=== PATIENT | female | born 2005 | race Caucasian/White ===

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

== ENCOUNTER 2025-04-24 08:40 | Emergency (ER) | payer BC, SELFPAY ==
--- OUTSIDE RECORDS SUMMARY | 2025-04-24 08:41 | XMS_ITS | Encounter Summary ---
Author Organization [facility] Address [address] [place] [address] Care Team Providers Care Abnormal Psychology Teacher Name Role Phone Oswaldo Contreras MD Primary Care Provider [phone] Edu Sears MD Primary Care Provider [phone] Edu Sears MD Unavailable [phone] Bee Jackson R Unavailable [phone] Bee Jackson R Unavailable [phone] Bee Jackson R Unavailable [phone] Bee Jackson R Unavailable [phone] Reason for Visit * Reason Onset Date Comments Refill Request 03/18/2018 Please call in L evothyroxine to [facility] Encounter Details Date Type Department Care Team (Late st Contact Info) Description 03/18/2018 Telephone [facility] Pediatrics - Endocrinology [facility] [place] [address] Cheyenne Ahmadi Refill Request (Please call in Levothyroxine to [facility]) Social History Tobacco Use Types Packs/Day Years Used Date Smoking Tobacco: Never Smokeless Tobacco: Never Alcohol Use Standard Drinks/Week Comments No 0 (1 standard drink = 0.6 oz pur e alcohol) Comments No Sex and Gender Information Value Date Recorded Sex Assigned at Female 07/14/2020 2:50 PM [employer] IN[employer] Legal Sex Female 5:45 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 Author Use safety retraint in car Lifestyle On track( 020 10:12 AM CDT) Lillian Lantigua RN documented as of this encounter Visit Diagnoses Not on filedocumented in this encounter Care Teams Abnormal Psychology Teacher Relationship Specialty Start Date End Date Oswaldo Contreras MD [address] [place] [address] PCP - General Pediatrics 12/15/17 12/04/21 Edu Sears MD [address] [address] PCP - General Family Medicine 12/05/21 Edu Sears MD [address] [address] PCP - Attributed-[employer] 03/05/22 Bee Jackson Care Coordination Specialist Care Management 12/01/23 01/15/24 Bee Jackson Care Coordination Specialist Care Management 02/24/24 02/24/24 Bee Jackson Care Coordination Specialist Care Management 09/15/24 09/15/24 Bee Jackson Care Coordination Specialist Care Management 12/31/24 12/31/24 documented as of this encounter
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
--- OUTSIDE RECORDS SUMMARY | 2025-04-24 08:41 | XMS_ITS | Clinical Summary ---
Author Organization [facility] Address [address] [place] [address] Care Team Providers Care Code Clerk Name Role Phone Edu Sears MD Primary Care Provider [phone] Edu Sears MD Unavailable [phone] Source Comments [facility],non-owned Affiliates and Associated Physician Practices is amultiple site organization consisting of ambulatory clinics and hospital sitesin [place], [place], [place] and [place]. This disclosure is being madepursuant to the Care Everywhere program and may not contain all information available regarding this patient. Last updated 18.[facility] Allergies Active Allergy Reactions Criticality Noted Date Comments Penicillins Rash Low 07/14/2015 Medications * Be aware that medications may not be up to date on this document. Alwaysverify current medications with the patient. Blisovi 24 Fe 1-20 MG-MCG(24) tablet Take 1 (one) tablet by mouth once daily 12/20/2022 Active Active Problems Problem Noted Date Diagnosed Date Hypothyroidism (acquired) 07/22/2015 Overview (07/14/2020): Dolores was diagnosed around 5 years of age with acquired hypothyroidism treated with low dose levothyroxine. Transferred care to [facility] due to insurance issues in July 2015. 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 (AF LURIA, FLUZONE TRIVALENT; 6MO+) (IIV3) 05/18/2007,02/20/2006 Covid Pfizer primary monoval ent 12+ yr 0.3mL Purple cap 12/12/2020,11/21/2020 DTAP, HISTORIC VACCINE 06/16/2015 DTaP VACCINE IM (6wk-6yrs) 12/13/2010,,2005,09/13,2005 HEP A PEDS 2 DOSE 05/18/2007,05/19/2006 HEP B VACCINE 2005 HEP B VACCINE, PED/ADOL 05/16/2007,02/20,2005,05/16 HIB-PRP-T 4 DOSE 09/16/2006, 6,2005,07/15 Human Papilloma Virus Nineva lent Vaccine 12/28/2015,08/18/2015,06/06/2015 Human Papilloma Virus Vaccine 12/28/2015, 016,06/16/2015 INFLUENZA VACCINE 06/16/2015, 9,05/18/2007,02/20 TONJA VACCINE QUAD LAIV4 PF NASAL 06/16/2015 MENINGOCOCAL MENINGITIS 10/03/2016 MENINGOCOCCAL ACWY MENVEO 11/14/2022,10/04/2016 MMR 12/13/2010,05/19/2006 MMR/VARICELLA 05/19/2006 PNEUMOCOCCAL PCV7 CONJ, PEDS 09/16/2006, 2005,2005,07/15 POLIO IPV 12/13/2010, 6,2005,07/15 TDAP (7yrs+) 06/16/2015 VARICELLA 12/13/2010,05/19/2006 Family History Medical History Relation Name Comments Asthma Father Diabetes - Type 2 Maternal Grandfather 30 -s-40's Hypertension Maternal Grandfather 40's Other - Cardiac Maternal Grandfather 40's Other - Shell Mold Bonder Maternal Grandmother 30's, e ndometriosis DVT - Deep Vein Thrombosis Other mat great GM Autoimmune Disease Neg Hx Eczema Neg Hx Migraine Neg Hx Seizures Neg Hx Sudd. <30 Neg Hx Relation Name Status Comments Brother 2 Alive Father Alive Maternal Grandfather Maternal Grandmother Mother Alive Other mat [facility] Other Social History Tobacco Use Types Packs/Day Years Used Date Smoking Tobacco: Never Passive Smoke Exposure: Yes Smokeless Tobacco: Never Tobacco Cessation:Counseling Given: Not Answered Alcohol Use Standard Drinks/Week Comments No 0 (1 standard drink = 0.6 oz pur e alcohol) PHQ-2 Answer Date Recorded Patient Health Questionnaire-2 Score 0 08/20/2024 Comments No Sex and Gender Information Value Date Recorded Sex Assigned at Female 07/14/2020 2:50 PM [employer] Legal Sex Female 5:45 AM G[employer] Gender Identity Female 07/14/2020 2:50 PM G[employer]ER Sexual Orientation Choose not to disclose 2020 2:50 PM [employer]ER Sexual Orientation Straight 07/14/2020 2: 50 PM G[employer]CH [employer]ER Last Filed Vital Signs Vital Sign Reading Time Taken Comments Blood Pressure 110/71 08/20/2024 9:19 AM CDT Pulse 92 08/20/2024 9:19 AM CDT Temperature 36.4 C (97.5 F) 08/20/2024 9:19 AM CDT Respiratory Rate 18 11/14/2022 8:42 AM CDT Oxygen Saturation 99% 08/20/2024 9:19 AM CDT Inhaled Oxygen Concentration - - Weight 74.9 kg (165 lb 3.2 oz) 08/20/2024 9:19 A M CDT Height 162.6 cm (5' 4) 08/20/2024 9:19 AM CDT Body Mass Index 28.36 08/20/2024 9:19 AM CDT Plan of Treatment Health Maintenance Due Date Last Done Comments HIV SCREENING 2020 CHLAMYDIA/GONORRHEA SCREENING 2021 MENINGOCOCCAL (Group B) VACCINE SHARED DECISION-MAKING (1 of 2 - Standard) 2021 HEPATITIS C SCREENING 05/11/2023 INFLUENZA VACCINE (#1) 2025 6, 06/16/2015, 04/13/2009, Additional history exists DTAP/TDAP/TD VACCINES (8 - Td or Tdap) 06/16/2025 06/16/2015, 06/16/2015, 12/13/2010, Additional history exists COVID-19 VACCINE ( season) 2026 12/12/2020, 11/21/2020 Postponed from 01/03/2025 (Patient Refused) ZOSTER VACCINE (1 of 2) 2055 HIB VACCINE Completed 09/16/2006, 11/02, 2005, Additional history exists PNEUMOCOCCAL VACCINE Completed 09/16/2006, 2005, 2005, Additional history exists HEPATITIS B VACCINE Completed 05/16/2007, 02/20/2006, 2005, Additional history exists HPV VACCINE Completed 12/28/2015, 12/04, 08/18/2015, Additional history exists MENINGOCOCCAL GROUPS A/C/Y/W VACCINE Completed 11/14/2022, 10/04/2016, 10/03/2016 DEPRESSION SCREENING Completed 08/20/2024, 06/25/2022, 12/07/2021 Goals Goal Patient Goal Type Associated Problems Recent Progress Patient-Stated? Author Use safety retraint in car Lifestyle On track( 020 10:12 AM CDT) No Lillian Geller RN Insurance [facility] Care Teams Code Clerk Relationship Specialty Start Date End Date Edu Sears MD [address] [phone] PCP - General Family Medicine 12/05/21 Edu Sears MD [address] [address] PCP - Attributed-[place] [employer] 03/05/22
[2025-04-24 08:46] VITALS: BP 112/57; PULSE 100; RESP 16; TEMP 36.2; O2SAT 101
--- NOTE | 2025-04-24 09:12 | ED_ITS ---
HPI - URI/Sore Throat General Chief Complaint: Upper Respiratory Infection Stated Complaint: Cough/Chills/Vomiting Time Seen by Provider: 04/24/25 09:12 Source: patient, RN notes reviewed and old records reviewed Mode of arrival: ambulatory Limitations: no limitations History of Present Illness HPI Narrative: 19-year-old female presents to [facility] with complaints of cough, chills, body aches, some vomiting today with symptoms starting on 4 days ago..Patient has taken Tylenol cold and flu for her symptoms Patient reports that she has not had any sore throat or any ear pain and no known fevers. Patient reports that chest hurts with cough and breathing. MD elicited complaint: cough and other (vomiting. chills, body aches) Onset (ago): day(s) (4) Pain scale (0-10): 5 Able to tolerate fluids by mouth: Yes Treatments prior to arrival: other (tylenol cough and cold) Related Data Allergies Allergy/AdvReac Type Severity Reaction Status Date / Time Penicillins Allergy Rash Verified 10/15/22 11:30 Review of Systems Review of Systems: CONSTITUTIONAL: reports malaise, no chills, sweats, or fever. EYES: Denies visual changes, redness, or discharge. ENT: Reports rhinorrhea, congestion, sinus pain,no otalgia and no sore throat. CARDIOVASCULAR: Denies chest pain, palpitations, or edema. RESPIRATORY: Reports cough.? Denies dyspnea.states chest hurts with cough and breathing GASTROINTESTINAL: Denies abdominal pain, nausea, vomiting, diarrhea SKIN: Denies rash or itching. MUSCULOSKELETAL: reports myalgia. NEUROLOGIC: Denies headache. All systems reviewed & are unremarkable except as noted in HPI and below PMFSH Past Medical History Medical History Hypothyroid Surgical History Surgical History No history of previous surgery Family History Family History Mother Family history non-contributory Social History Social History Smoking status: Never smoker Alcohol intake: never Substance use: never Living arrangements: with family Occupation/Education: student Gender identity (if verbalized by the patient): Female Comments At time of signature, agree with nursing past medical, surgical, social and family history. There is no relevant family history pertinent to the presenting complaint Exam Narrative: GENERAL: Well-appearing, well-nourished, and in no acute distress. HEAD: Normocephalic EYES: PERRLA, conjunctivae clear ENT: Nares clear, turbinates edematous and erythematous, clear discharge. Mucous membranes moist. TM pearly edwards with dull light reflex bilaterally; no tragal tenderness. Oropharynx erythematous without lesions. Tonsils red mildly enlarged and without exudate, no drooling, no hoarseness, no trismus, uvula midline.post nasal drainage noted NECK: Supple. No lymphadenopathy CHEST: Clear to auscultation, breath sounds equal. No wheezing, rhonchi, rales, or stridor. No respiratory distress, speaks in full sentences.cough noted SAO2 100% on room air HEART: Regular rate and rhythm. No murmur heard. SKIN: Warm, dry, no rash. NEURO: Alert and oriented x3. PSYCH: Normal mood and affect Course Course Level of Care: Express Care Visit Vital Signs Vital signs: Vital Signs Temperature 36.2 C L 04/24/25 08:46 Pulse Rate 100 04/24/25 08:46 Respiratory Rate 16 04/24/25 08:46 Blood Pressure 112/57 L 04/24/25 08:46 Pulse Oximetry 101 H 04/24/25 08:46 Oxygen Delivery Room Air 04/24/25 08:46 Temperature 36.2 C L 04/24/25 08:46 Pulse Rate 100 04/24/25 08:46 Respiratory Rate 16 04/24/25 08:46 Blood Pressure 112/57 L 04/24/25 08:46 Pulse Oximetry 101 H 04/24/25 08:46 Oxygen Delivery Room Air 04/24/25 08:46 reviewed MDM MDM Narrative Medical decision making narrative: 19 year old female who presents to clinic with cough chills and vomiting and has been tested for flu,Covid and strep with all tests negative with strep culture sent. Anticipatory guidance and reasons to seek care in ED reviewed with patient with understanding voiced. Differential Diagnosis Differential Diagnosis: Differential diagnostic considerations for upper respiratory infection include upper respiratory infection, croup, otitis media, sinusitis, viral infection, bronchitis, influenza, pharyngitis, strep, uvulitis.? Lab Data MDM Lab Attestation statement: I personally reviewed the patient's lab results. Lab results narrative: strep screen negative, strep culture set, influenza a and B negative, COVID antigen negative Labs: Lab Results 04/24/25 Range/Units 09:38 POC Influenza A Ag Negative (Negative) POC Influenza B Ag Negative (Negative) POC SARS CoV-2 Ag Negative (Negative) POC Grp A Strep Screen Negative (Negative) reviewed Critical Care Time Critical Care Time Critical Care Time: No Discharge Plan Discharge Clinical Impression: Viral pharyngitis Nausea and vomiting Qualifiers: Vomiting type: unspecified Qualified Code(s): R11.2 - Nausea with vomiting, unspecified Patient Disposition: Home Condition: Stable Instructions: Pharyngitis (ED) Additional Instructions: Increase fluids especially juices and water Begb-[id number]-[id number] cough and cold medicine of your choice for your symptoms Zyrtec Claritin or Homa daily may use Sudafed plain heat to the face 20-30 minutes 4-6 times a day for pain Salt water gargles, throat lozenges or throat sprays as desired recommend clear liquids today and slowly advance diet Zofran for nausea and vomiting Your strep test today was negative. A throat culture will be sent to the laboratory for further testing. IF the test is positive, you will receive a phone call within 48 hours and an appropriate antibiotic will be initiated at that time. influenza and COVID also negative If your symptoms persist, change or worsen significantly before you can contact your personal physician then please, without delay, go to the emergency department for further evaluation. Follow-up with PCP in 7-10 days or sooner if needed Patient Language: Macedonian Prescriptions: New ondansetron 4 mg tablet,disintegrating 4 mg PO Q6H PRN (Reason: nausea and vomiting) Qty: 20 0RF Rx Instructions: whatever preparation is covered by insurance Follow-up/Referrals: Orion,Edu Carroll M.D. [Primary Care Provider] Time of Disposition: 09:53 Quality [place] Coma Scale Eyes: Open Verbal: Oriented and Alert Motor: Follows Commands Chelsi Coma Total Score: 15
[2025-04-24 09:40] LABS: EDCOVIDSCREEN Negative (Negative); EDINFLUASCREEN Negative (Negative); EDINFLUBSCREEN Negative (Negative); EDSTREPNEGPOS1 Negative (Negative)
== END 2025-04-24 09:57 | disposition home or self-care (01) ==
PROVIDERS: Emergency Provider Registered Nurse; PCP Family Medicine
DX: J02.8 Acute pharyngitis due to other specified organisms (principal); R11.2 Nausea with vomiting, unspecified; Z20.822 Contact with and (suspected) exposure to COVID-19; E03.9 Hypothyroidism, unspecified
CPT/HCPCS: 87081; 87426; 87804; 87880; 99213; G0463